=== PATIENT | male | born 1970 | race Two or more races ===

== ENCOUNTER 2019-10-17 08:38 | Emergency (ER) | payer SELFPAY ==
[~2019-10-17] VITALS: Ht 162.6 cm; Wt 59.0 kg
--- NOTE | 2019-10-17 08:49 | Emergency Room Report ---
History of Present Illness General Chief Complaint: Alcohol Intoxication Source: EMS Present Illness HPI Disclaimer: Please note that this report is being documented using [employer] technology. This can lead to erroneous entry secondary to incorrect interpretation by the dictating instrument. HPI: This is a approximately 42-year-old male brought in by EMS from the street for possible alcohol intoxication. He is limited due to patient's intoxicated status. He is unable to provide any history on exam. Vital signs stable on arrival. He was found sleeping on the street. He was found with a empty liquor bottle. Blood sugar in route to 89. Patient was awake on arrival but not answering questions PMH: Unknown PSH: Reviewed Social Hx: Alcohol use Allergies: Coded Allergies: No Known Allergies (Unverified , 10/17/19) Patient History Past Medical History: see triage record Reviewed Nursing Documentation: PMH: Agreed; PSxH: Agreed Nursing Documentation-PMH Past Medical History Deferred: Pt Cognitively Impaired Review of Systems All Other Systems: limited - Due to alcohol intoxication Physical Exam Vital Signs Date Time Temp Pulse Resp B/P (MAP) Pulse Ox O2 Delivery O2 Flow Rate FiO2 10/17/19 08:41 97.9 88 16 120/80 (93) 98 Room Air Sp02 EP Interpretation: reviewed, normal General Appearance: no apparent distress, other - Poorly groomed Head: normocephalic, other - Hematoma to right forehead without depressions Eyes: bilateral eye PERRL, bilateral eye EOMI ENT: hearing grossly normal, moist mucus membranes Neck: full range of motion, supple Respiratory: lungs clear, normal breath sounds, no rhonchi, no respiratory distress, no retraction, no wheezing Cardiovascular #1: normal peripheral pulses, regular rate, rhythm, no murmur Gastrointestinal: non tender, soft, non-distended, no guarding Neurologic: alert, no focal defects Skin: normal color, warm/dry Medical Decision Making ER Course Differential diagnosis included but not limited to alcohol intoxication, diabetic hyperglycemia, dehydration to name a few. On exam patient did have evidence of hematoma to the right forehead. CT scan of the brain showed no evidence of intracranial hemorrhage or skull fracture. Laboratory studies indicated alcohol intoxication with alcohol level 490. Patient's anion gap mildly elevated I suspect due to his alcohol intoxication. IV fluids given. We will continue to observe until clinically sober. Patient signed out to oncoming physician to continue to observe until clinically sober and stable for discharge. Laboratory Tests Test 10/17/19 09:00 White Blood Count 12.6 K/UL (4.8-10.8) H Red Blood Count 5.39 M/UL (4.70-6.10) Hemoglobin 13.2 G/DL (14.2-18.0) L Hematocrit 42.4 % (42.0-52.0) Mean Corpuscular Volume 79 FL (80-99) L Mean Corpuscular Hemoglobin 24.5 PG (27.0-31.0) L Mean Corpuscular Hemoglobin Concent 31.2 G/DL (32.0-36.0) L Red Cell Distribution Width 20.9 % (11.6-14.8) H Platelet Count 416 K/UL (150-450) Mean Platelet Volume 6.0 FL (6.5-10.1) L Neutrophils (%) (Auto) 84.0 % (45.0-75.0) H Lymphocytes (%) (Auto) 10.7 % (20.0-45.0) L Monocytes (%) (Auto) 4.3 % (1.0-10.0) Eosinophils (%) (Auto) 0.0 % (0.0-3.0) Basophils (%) (Auto) 1.0 % (0.0-2.0) Prothrombin Time 9.7 SEC (9.30-11.50) Prothrombin Time INR 0.9 (0.9-1.1) Activated Partial Thromboplast Time 25 SEC (23-33) Sodium Level 137 MMOL/L (136-145) Potassium Level 4.0 MMOL/L (3.5-5.1) Chloride Level 95 MMOL/L (98-107) L Carbon Dioxide Level 19 MMOL/L (21-32) L Anion Gap 23 mmol/L (5-15) H Blood Urea Nitrogen 11 mg/dL (7-18) Creatinine 1.1 MG/DL (0.55-1.30) Estimate Glomerular Filtration Rate > 60 mL/min (>60) Glucose Level 280 MG/DL (74-106) H Calcium Level 8.8 MG/DL (8.5-10.1) Total Bilirubin 0.4 MG/DL (0.2-1.0) Aspartate Amino Transferase (AST) 108 U/L (15-37) H Alanine Aminotransferase (ALT) 66 U/L (12-78) Alkaline Phosphatase 134 U/L (46-116) H Total Protein 8.3 G/DL (6.4-8.2) H Albumin 3.9 G/DL (3.4-5.0) Globulin 4.4 g/dL Albumin/Globulin Ratio 0.9 (1.0-2.7) L Serum Alcohol 461 mg/dL CT/MRI/US Diagnostic Results CT/MRI/US Diagnostic Results : Impression CT scan of the brain Procedure: CT Head no Contrast Indication: Headache Technique: Contiguous 5 mm thick transaxial imaging of the head obtained in a Siemens Sensation [address] scanner. Soft tissue and bone windows generated. Automatic Exposure Control was utilized. Total Dose length Product (DLP): 1018.8mGycm CT Dose Index Volume (CTDIvol): 53.4 mGy Comparison: none Findings: The size and configuration of the cortical sulci, basal cisterns, and ventricles are within normal limits for age. There is no mass effect, midline shift, or edema identified. There is no evidence of acute hemorrhage or abnormal intra- axial or extra-axial fluid collections. The bones and soft tissues are unremarkable. There is soft tissue swelling over the right frontal region. Impression: No mass effect, edema or acute bleed. Right frontal soft tissue contusion Last Vital Signs Date Time Temp Pulse Resp B/P (MAP) Pulse Ox O2 Delivery O2 Flow Rate FiO2 10/17/19 08:41 97.9 88 16 120/80 (93) 98 Room Air Status: improved Disposition: HOME, SELF-CARE Condition: Stable Signed Out To: Roderick Lorenzo M.D. Oct 17, 2019 08:49
--- NOTE | 2019-10-17 09:00 | NUR ---
ED Nurse Note: pt brought in by ambulance, per ems pt was sleeping on the sidewalk and ems found vodka bottle next to him. pt aaox0,nonverbal, opens eyes withdrawal pain only, lethargic, drowsy, with flat affect. right upper forehead bump with bruise noted. no other skin wound noted. no sob, no labored breathing noted at this time. pt is in gown and on cardiac monitor technician. pt on bedrest for now. ERMD by bedside.
--- NOTE | 2019-10-17 09:04 | NUR ---
ED Nurse Note: pt taken to CT in stable condition.
[2019-10-17 09:08] VITALS: BP 134/86
[2019-10-17 09:33] LABS: ANION GAP 23 mmol/L (5-15); BLOOD UREA NITROGEN 11 mg/dL (7-18); CALCIUM 8.8 MG/DL (8.5-10.1); CARBON DIOXIDE 19 MMOL/L (21-32); CHLORIDE 95 MMOL/L (98-107); CREATININE 1.1 MG/DL (0.55-1.30); HEMATOCRIT 42.4 % (42.0-52.0); HEMOGLOBIN 13.2 G/DL (14.2-18.0); LYMPHOCYTES % (AUTO) 10.7 % (20.0-45.0); MEAN CORPUSCULAR VOLUME 79 FL (80-99); MONOCYTES % (AUTO) 4.3 % (1.0-10.0); PLATELET COUNT 416 K/UL (150-450); RED BLOOD COUNT 5.39 M/UL (4.70-6.10); RED CELL DISTRIBUTION WIDTH 20.9 % (11.6-14.8); SODIUM 137 MMOL/L (136-145); WHITE BLOOD COUNT 12.6 K/UL (4.8-10.8)
--- NOTE | 2019-10-17 09:33 | Diagnostic Imaging Report ---
Indication: Headache Technique: Contiguous 5 mm thick transaxial imaging of the head obtained in a Siemens Sensation [address] scanner. Soft tissue and bone windows generated. Automatic Exposure Control was utilized. Total Dose length Product (DLP): 1018.8mGycm CT Dose Index Volume (CTDIvol): 53.4 mGy Comparison: none Findings: The size and configuration of the cortical sulci, basal cisterns, and ventricles are within normal limits for age. There is no mass effect, midline shift, or edema identified. There is no evidence of acute hemorrhage or abnormal intra-axial or extra-axial fluid collections. The bones and soft tissues are unremarkable. There is soft tissue swelling over the right frontal region. Impression: No mass effect, edema or acute bleed. Right frontal soft tissue contusion The CT scanner at [facility] is accredited by the [employer] and the scans are performed using dose optimization techniques as appropriate to a performed exam including Automatic Exposure control.
[2019-10-17 09:39] LABS: INR 0.9 (0.9-1.1)
[2019-10-17 09:40] LABS: ALANINE AMINOTRANSFERASE 66 U/L (12-78); ALBUMIN 3.9 G/DL (3.4-5.0); ALBUMIN/GLOBULIN RATIO 0.9 (1.0-2.7); ALKALINE PHOSPHATASE 134 U/L (46-116); ASPARTATE AMINO TRANSFERASE 108 U/L (15-37); BILIRUBIN,TOTAL 0.4 MG/DL (0.2-1.0)
[2019-10-17 11:08] VITALS: BP 124/81
--- NOTE | 2019-10-17 11:29 | NUR ---
ED Nurse Note: attempt waking up pt, however unable to arouse pt. pt still lethargic and drowsy.
--- NOTE | 2019-10-17 12:30 | NUR ---
ED Nurse Note: went to see pt with ERMD. pt still lethargic and drowsy. unable to arouse pt at this time. VSS as documented.
[2019-10-17 13:10] VITALS: BP 127/68
--- NOTE | 2019-10-17 13:50 | NUR ---
ED Nurse Note: attempt to wake pt up again. pt able to open eye spontaneously and able to answer question but unable to understand because pt mumbling. pt unable to ambulate at this moment.
--- NOTE | 2019-10-17 15:35 | NUR ---
ED Nurse Note: pt more awake. pt ambulate to bathroom with steady gait. registration informed to get pt's information.
--- NOTE | 2019-10-17 16:09 | NUR ---
ED Nurse Note: moved pt to hallway bed. report given to rodrigo coppola. VSS. IV removed.
[2019-10-17 16:20] VITALS: BP 127/68
--- NOTE | 2019-10-17 16:21 | NUR ---
ED Nurse Note: Pt cleared by health care Provider for discharge. DC instructions/prescription was given and explained to pt and verbalized understanding of teachings. All medical deviecs such as ID band removed. Pt is AAO x4, ambulatory and left with all personal belongings.
== END 2019-10-17 16:23 | disposition home or self-care (01) ==
LOC: EDBD 08:38 → EMR 08:50
DX: F10.129 Alcohol abuse with intoxication, unspecified (principal); S00.83XA Contusion of other part of head, initial encounter; X58.XXXA Exposure to other specified factors, initial encounter; Y92.9 Unspecified place or not applicable
CPT/HCPCS: 36415; 70450; 80053; 85025; 85610; 85730; 96360; 96361; 99284; G0480; J7030

== ENCOUNTER 2019-10-17 18:12 | Emergency (ER) | payer SELFPAY ==
[~2019-10-17] VITALS: Ht 165.1 cm; Wt 63.5 kg
[2019-10-17 18:15] VITALS: BP 115/72
--- NOTE | 2019-10-17 18:15 | NUR ---
ED Nurse Note: PT brought in by RA Jane from the street for alcohol intoxication. pt is alert x2, appears to be lethargic. responsive to light pain.
--- NOTE | 2019-10-17 20:06 | NUR ---
ED Nurse Note: Blood drawn, sent to lab
[2019-10-17 20:39] VITALS: BP 120/70
--- NOTE | 2019-10-17 20:40 | NUR ---
ED Nurse Note: PT in bed, appears to be sleeping . VSS as documented.
[2019-10-17 22:30] VITALS: BP 122/74
--- NOTE | 2019-10-17 22:46 | Emergency Room Report ---
History of Present Illness General Chief Complaint: Alcohol Intoxication Source: Patient Present Illness HPI This patient has a known history of alcohol intoxication. He is homeless. He was admitted earlier today by another physician for alcohol intoxication. He was allowed to sober up in the emergency department and was discharged. In the interim time after leaving the emergency department he again drank a large amount of alcohol and returns obtunded and intoxicated. The patient himself has no specific complaints. Allergies: Coded Allergies: No Known Allergies (Unverified , 10/17/19) Patient History Past Medical History: see triage record, other - ETOH abuse and intoxication Social History: Reports: alcohol use Reviewed Nursing Documentation: PMH: Agreed; PSxH: Agreed Nursing Documentation-PMH Past Medical History: No Stated History Review of Systems All Other Systems: negative except mentioned in HPI Physical Exam Vital Signs Date Time Temp Pulse Resp B/P (MAP) Pulse Ox O2 Delivery O2 Flow Rate FiO2 10/17/19 18:08 98.4 60 16 110/70 (83) 97 Room Air Sp02 EP Interpretation: reviewed, normal General Appearance: no apparent distress, non-toxic, Stupor Head: other - Old ecchymosis on L. forehead Eyes: bilateral eye normal inspection, bilateral eye PERRL ENT: hearing grossly normal, normal pharynx, no angioedema, normal voice Neck: full range of motion, supple/symm/no masses Respiratory: chest non-tender, lungs clear, normal breath sounds, no respiratory distress, no retraction, no accessory muscle use, speaking full sentences Cardiovascular #1: regular rate, rhythm, no edema Gastrointestinal: normal bowel sounds, non tender, soft, non-distended, no guarding, no rebound Rectal: deferred Musculoskeletal: back normal, normal range of motion, non-tender Neurologic: responsive, Babinski - stupor/intoxicated. Non-focal Skin: no rash Medical Decision Making Diagnostic Impression: Primary Impression: Acute alcoholic intoxication ER Course This patient has alcohol intoxication with a blood alcohol 442. Evidently, the patient left the emergency department earlier and immediately drank a large amount of alcohol and returns intoxicated. He received a full work-up just hours previously to include a head CT all of which was unremarkable. The patient's blood alcohol is 442. He is resting in the emergency department to sober up. The patient is turned over to Dr. Mcneal. Laboratory Tests Test 10/17/19 20:00 Serum Alcohol 442 mg/dL Last Vital Signs Date Time Temp Pulse Resp B/P (MAP) Pulse Ox O2 Delivery O2 Flow Rate FiO2 10/17/19 20:39 98.2 67 15 120/70 98 Room Air Status: improved Disposition: HOME, SELF-CARE Condition: Improved Referrals: NOT CHOSEN IPA/,REFERRING (PCP) Tracy Barksdale DO Oct 17, 2019 22:46
--- NOTE | 2019-10-17 23:18 | NUR ---
ED Nurse Note: Report given to JOHANA Roberts. Endorsed plan of care.
--- NOTE | 2019-10-17 23:19 | NUR ---
ED Nurse Note: Report received from JOHANA Cuello. Pt placed in treatment 1 bed. No acute distress noted. Will continue to monitor.
--- NOTE | 2019-10-18 01:30 | NUR ---
ED Nurse Note: Pt feels sober now, aaox4, able to walk with steady gait and asking to go home.
[2019-10-18 01:40] VITALS: BP 118/95
--- NOTE | 2019-10-18 01:40 | NUR ---
ER DISCHARGE NOTE: Patient is cleared to be discharged per ERMD, pt is aox4, on room air, with stable vital signs. pt was given dc and prescription instructions, pt was able to verbalize understanding, pt id band removed. pt is able to ambulate with steady gait. pt took all belongings.
== END 2019-10-18 01:40 | disposition home or self-care (01) ==
LOC: EDBD 18:12 → EMR 22:29
DX: F10.129 Alcohol abuse with intoxication, unspecified (principal); Z59.0 Homelessness
CPT/HCPCS: 36415; 99282; G0480